=== PATIENT | male | born 1980 ===

== ENCOUNTER 2019-06-06 21:10 | Emergency (ER) | payer OTHER ==
[2019-06-06] MEDS ORDERED: LIDOCAINE HCL 1% MPF 30 SOL ONE (21:21)
[2019-06-06] MEDS ORDERED: TDAP VACCINE 0.5 ML SUS IM ONE ×2 (21:44→21:45)
[2019-06-06 22:16] VITALS: BP 131/80; PULSE 55; RESP 16; TEMP 97.3; O2SAT 100
== END 2019-06-06 21:50 | disposition home or self-care (01) ==
LOC: ED 21:10
DX: S69.92XA Unspecified injury of left wrist, hand and finger(s), initial encounter (principal)
CPT/HCPCS: 90471; 90715; 99282; J2001